=== PATIENT | female | born 1960 | race Caucasian/White ===

== ENCOUNTER 2022-02-14 18:22 | Emergency (ER) | payer SELFPAY ==
[~2022-02-14 18:22] MED LIST: Iopamidol-370 76% 500 ML 1 ML ONE
[2022-02-14 19:23] LABS: #Eosinphils 0.4 thou/uL (0.0-0.7); #Lymphocytes 2.8 thou/uL (1.20-3.40); #Monocytes 0.8 thou/uL (0.11-0.59); %Basophils 0.5 % (0.0-1.0); %Lymphocytes 27.7 % (21.0-51.0); %Monocytes 7.5 % (0.0-10.0); %Neutrophils 60.3 % (42.0-75.0); Hemoglobin 13.5 g/dL (12.0-16.0); Mean Corpuscular Volume 93.9 fL (78.0-98.0); Mean Platelet Volume 7.7 fL (7.4-10.4); Platelet Count 323 thou/uL (130-400); RBC Distribution Width 13.3 % (11.5-14.5); Red Blood Cell (RBC) Count 4.36 mill/uL (4.20-5.40); White Blood Cell (WBC) Count 9.9 thou/uL (4.8-10.8)
[2022-02-14 19:45] LABS: ALT (SGPT) 10 U/L (8-55); AST (SGOT) 20 U/L (5-34); Albumin 4.6 g/dL (3.4-4.8); Alkaline Phosphatase 108 U/L (40-110); Anion Gap 15 mmol/L (10-20); BUN (Urea Nitrogen) 20 mg/dL (9.8-20.1); Bilirubin, Total 0.2 mg/dL (0.2-1.2); Calc. Creatinine Clearance 0 mL/min (70-130); Calcium 9.4 mg/dL (7.8-10.44); Carbon Dioxide 27 mmol/L (23-31); Chloride 102 mmol/L (98-107); Glucose 108 mg/dL (80-115); Potassium 3.9 mmol/L (3.5-5.1); Protein, Total 7.6 g/dL (5.8-8.1); Sodium 140 mmol/L (136-145)
[2022-02-14] MEDS ORDERED: Ketorolac Tromethamine 30 MG/ML VIAL ONE (21:41)
== END 2022-02-14 21:48 | disposition home or self-care (01) ==
LOC: ERS 18:22
DX: R06.02 Shortness of breath (principal); I49.8 Other specified cardiac arrhythmias; E11.9 Type 2 diabetes mellitus without complications; I50.9 Heart failure, unspecified; J44.9 Chronic obstructive pulmonary disease, unspecified; I48.91 Unspecified atrial fibrillation; E03.9 Hypothyroidism, unspecified; H26.9 Unspecified cataract; Z87.891 Personal history of nicotine dependence
CPT/HCPCS: 71045; 71275; 80053; 83880; 84484; 85025; 93005; 94640; 96374; J1885; Q9967

== ENCOUNTER 2022-03-15 13:36 | Observation (INO) | payer MEDICAID, SELFPAY ==
[2022-03-15 14:16] LABS: #Basophils 0.1 thou/uL (0.0-0.2); #Eosinphils 0.4 thou/uL (0.0-0.7); #Lymphocytes 3.5 thou/uL (1.20-3.40); #Monocytes 0.8 thou/uL (0.11-0.59); #Neutrophils 4.3 thou/uL (1.40-6.50); %Basophils 1.2 % (0.0-1.0); %Eosinophils 4.8 % (0.0-10.0); %Lymphocytes 38.4 % (21.0-51.0); %Monocytes 8.3 % (0.0-10.0); %Neutrophils 47.3 % (42.0-75.0); Hemoglobin 14.2 g/dL (12.0-16.0); Mean Corpuscular HGB CONC 32.4 g/dL (32.0-36.0); Mean Corpuscular Hemoglobin 30.6 pg (27.0-31.0); Mean Corpuscular Volume 94.3 fL (78.0-98.0); Mean Platelet Volume 7.4 fL (7.4-10.4); Platelet Count 296 thou/uL (130-400); RBC Distribution Width 13.3 % (11.5-14.5); Red Blood Cell (RBC) Count 4.65 mill/uL (4.20-5.40); White Blood Cell (WBC) Count 9.1 thou/uL (4.8-10.8)
[2022-03-15] MEDS ORDERED: Aspirin Chewable 81 MG TAB ONE (14:32)
[2022-03-15] MEDS ORDERED: Magnesium 2 GM/50 ML BAG (IN WATER) ONE (14:32)
[2022-03-15] MEDS ORDERED: methylPREDNISolone Sod Succ/PF 125 MG/2 ML VIAL ONE ×2 (14:32→14:33)
[2022-03-15 14:37] LABS: ALT (SGPT) 13 U/L (8-55); AST (SGOT) 21 U/L (5-34); Albumin 4.2 g/dL (3.4-4.8); Alkaline Phosphatase 90 U/L (40-110); Anion Gap 15 mmol/L (10-20); BUN (Urea Nitrogen) 22 mg/dL (9.8-20.1); Bilirubin, Total 0.3 mg/dL (0.2-1.2); Calc. Creatinine Clearance 0 mL/min (70-130); Carbon Dioxide 28 mmol/L (23-31); Chloride 103 mmol/L (98-107); Globulin 3.4 g/dL (2.4-3.5); Glucose 149 mg/dL (80-115); Potassium 3.9 mmol/L (3.5-5.1); Protein, Total 7.6 g/dL (5.8-8.1); Sodium 142 mmol/L (136-145)
[2022-03-15] MEDS ORDERED: Sodium Chloride 0.9% 100 ML ONE (16:51)
[2022-03-15] MEDS ORDERED: cefTRIAXone\\ROCEPHIN 2 GM VIAL ONE (16:52)
[2022-03-15] MEDS ORDERED: Acetaminophen 325 MG TAB PO PRN (17:29)
[2022-03-15] MEDS ORDERED: Senokot S 8.6-50 MG TAB PO PRN (17:29)
[2022-03-15] MEDS ORDERED: Dextrose 5% in Water 1,000 ML IV PRN (17:35)
[2022-03-15] MEDS ORDERED: Dextrose 50% Abboject 50 ML SYRINGE SLOW IVP PRN (17:35)
[2022-03-15] MEDS ORDERED: HumaLOG 300 UNITS/3 ML VIAL SC PRN (17:35)
[2022-03-15] MEDS ORDERED: methylPREDNISolone Sod Succ 40 MG VIAL IVP SCH (18:00)
[2022-03-15 18:29] LABS: Troponin I Less than 0.010 ng/mL (< 0.028)
[2022-03-15 20:59] LABS: Troponin I Less than 0.010 ng/mL (< 0.028)
[2022-03-15] MEDS: guaiFENesin ER 600 MG TAB PO SCH (21:02)
[2022-03-15] MEDS: Famotidine 20 MG TAB PO SCH (21:02)
[2022-03-15] MEDS: methylPREDNISolone Sod Succ 40 MG VIAL IVP SCH (21:04)
[2022-03-15 21:15] VITALS: BMI 36.1
[2022-03-15 21:21] LABS: SARS-CoV-2 NAA Rapid Test Not Detected (NotDetected)
[2022-03-15] MEDS: Enoxaparin Sodium 100 MG/ML SYRINGE SC SCH (21:37)
[2022-03-15] MEDS: Mometasone 200 MCG/Formoterol 5 MCG 120 PUFF INHALER INH SCH (22:26)
[2022-03-16] MEDS: methylPREDNISolone Sod Succ 40 MG VIAL IVP SCH ×2 (04:26→07:45)
[2022-03-16 06:04] LABS: Anion Gap 17 mmol/L (10-20); BUN (Urea Nitrogen) 18 mg/dL (9.8-20.1); Calc. Creatinine Clearance 94 mL/min (70-130); Carbon Dioxide 19 mmol/L (23-31); Chloride 107 mmol/L (98-107); Glucose 134 mg/dL (80-115); Magnesium 2.4 mg/dL (1.6-2.6); Potassium 4.6 mmol/L (3.5-5.1); Sodium 138 mmol/L (136-145)
[2022-03-16 06:34] LABS: Band 2 % (5-11); Hemoglobin 14.6 g/dL (12.0-16.0); Lymphocytes 12 % (21-51); MDiff Complete? YES; Mean Corpuscular HGB CONC 32.2 g/dL (32.0-36.0); Mean Corpuscular Hemoglobin 30.2 pg (27.0-31.0); Mean Corpuscular Volume 93.7 fL (78.0-98.0); Mean Platelet Volume 8.2 fL (7.4-10.4); Neutrophil 86 % (42-75); Platelet Count 312 thou/uL (130-400); Platelet Morphology Comment Appears Adequate; RBC Distribution Width 13.3 % (11.5-14.5); RBC Morphology Normal; Red Blood Cell (RBC) Count 4.85 mill/uL (4.20-5.40); White Blood Cell (WBC) Count 18.9 thou/uL (4.8-10.8)
[2022-03-16] MEDS ORDERED: Furosemide 40 MG TAB PO SCH (07:30)
[2022-03-16] MEDS: Enoxaparin Sodium 100 MG/ML SYRINGE SC SCH (07:45)
[2022-03-16] MEDS: Famotidine 20 MG TAB PO SCH (07:46)
[2022-03-16] MEDS: guaiFENesin ER 600 MG TAB PO SCH (07:46)
[2022-03-16] MEDS: Mometasone 200 MCG/Formoterol 5 MCG 120 PUFF INHALER INH SCH (08:22)
[2022-03-16 12:01] VITALS: BP 123/58; TEMP 98.1
== END 2022-03-16 13:57 | disposition home or self-care (01) ==
LOC: ERS 13:36 → 2SW 17:14
PROVIDERS: ADMIT Internal Medicine; ATTEND Internal Medicine
DX: J44.1 Chronic obstructive pulmonary disease with (acute) exacerbation (principal); I50.9 Heart failure, unspecified; I48.0 Paroxysmal atrial fibrillation; Z20.822 Contact with and (suspected) exposure to COVID-19; Z79.82 Long term (current) use of aspirin; Z79.84 Long term (current) use of oral hypoglycemic drugs; Z79.890 Hormone replacement therapy; Z79.899 Other long term (current) drug therapy; Z88.2 Allergy status to sulfonamides; Z87.891 Personal history of nicotine dependence; Z86.718 Personal history of other venous thrombosis and embolism
CPT/HCPCS: 36415; 36416; 71045; 71275; 80048; 80053; 83735; 83880; 84443; 84484; 85025; 85379; 87040; 93005; 94640; 94760; 96365; 96367; 96372; 96375; 96376; G0378; J0696; J1650; J2920; J2930; J3475; J3490; J7620; Q9967; U0002

== ENCOUNTER 2022-04-09 10:13 | Emergency (ER) | payer MEDICARE, MEDICAID ==
[2022-04-09 10:49] LABS: #Basophils 0.1 thou/uL (0.0-0.2); #Eosinphils 0.3 thou/uL (0.0-0.7); #Lymphocytes 3.3 thou/uL (1.20-3.40); #Monocytes 0.7 thou/uL (0.11-0.59); #Neutrophils 7.3 thou/uL (1.40-6.50); %Basophils 0.6 % (0.0-1.0); %Eosinophils 2.5 % (0.0-10.0); %Lymphocytes 28.2 % (21.0-51.0); %Monocytes 5.8 % (0.0-10.0); %Neutrophils 62.9 % (42.0-75.0); Hemoglobin 13.4 g/dL (12.0-16.0); Mean Corpuscular HGB CONC 32.3 g/dL (32.0-36.0); Mean Corpuscular Hemoglobin 30.3 pg (27.0-31.0); Mean Platelet Volume 8.4 fL (7.4-10.4); Platelet Count 273 thou/uL (130-400); RBC Distribution Width 14.2 % (11.5-14.5); Red Blood Cell (RBC) Count 4.42 mill/uL (4.20-5.40); White Blood Cell (WBC) Count 11.6 thou/uL (4.8-10.8)
[2022-04-09 11:03] LABS: ALT (SGPT) 12 U/L (8-55); AST (SGOT) 19 U/L (5-34); Albumin 4.3 g/dL (3.4-4.8); Alkaline Phosphatase 93 U/L (40-110); Anion Gap 17 mmol/L (10-20); BUN (Urea Nitrogen) 19 mg/dL (9.8-20.1); Bilirubin, Total Less than 0.2 mg/dL (0.2-1.2); Calc. Creatinine Clearance 0 mL/min (70-130); Calcium 9.8 mg/dL (7.8-10.44); Carbon Dioxide 24 mmol/L (23-31); Chloride 104 mmol/L (98-107); Estimated GFR 59; Globulin 3.3 g/dL (2.4-3.5); Glucose 134 mg/dL (80-115); Potassium 3.8 mmol/L (3.5-5.1); Protein, Total 7.6 g/dL (5.8-8.1); Sodium 141 mmol/L (136-145)
[2022-04-09] MEDS ORDERED: Albuterol Sulfate 2.5 mg/3 ml Neb ONE (12:24)
[2022-04-09] MEDS ORDERED: Albuterol Sulfate 2.5 mg/0.5 ml Neb ONE (12:24)
[2022-04-09] MEDS ORDERED: methylPREDNISolone Sod Succ/PF 125 MG/2 ML VIAL ONE (12:25)
[2022-04-09] MEDS ORDERED: Magnesium 2 GM/50 ML BAG (IN WATER) ONE (12:25)
[2022-04-09] MEDS ORDERED: predniSONE 20 MG TAB ONE (12:34)
== END 2022-04-09 14:00 | disposition home or self-care (01) ==
LOC: ERS 10:13
DX: J44.1 Chronic obstructive pulmonary disease with (acute) exacerbation (principal); E11.9 Type 2 diabetes mellitus without complications; E03.9 Hypothyroidism, unspecified; Z79.899 Other long term (current) drug therapy
CPT/HCPCS: 36415; 71045; 80053; 83605; 83735; 83880; 84484; 85025; 93005; 94640; 94760; J2930; J3475; J7512; J7611; J7620

== ENCOUNTER 2022-04-14 11:34 | Inpatient (IN) | payer MEDICARE, MEDICAID ==
[2022-04-14 12:17] LABS: #Basophils 0.1 thou/uL (0.0-0.2); #Eosinphils 0.1 thou/uL (0.0-0.7); #Lymphocytes 2.5 thou/uL (1.20-3.40); #Monocytes 0.5 thou/uL (0.11-0.59); #Neutrophils 9.8 thou/uL (1.40-6.50); %Basophils 0.5 % (0.0-1.0); %Eosinophils 0.5 % (0.0-10.0); %Lymphocytes 19.2 % (21.0-51.0); %Monocytes 3.7 % (0.0-10.0); %Neutrophils 76.2 % (42.0-75.0); Hemoglobin 12.5 g/dL (12.0-16.0); Mean Corpuscular HGB CONC 31.6 g/dL (32.0-36.0); Mean Corpuscular Hemoglobin 29.5 pg (27.0-31.0); Mean Corpuscular Volume 93.4 fL (78.0-98.0); Platelet Count 271 thou/uL (130-400); RBC Distribution Width 14.2 % (11.5-14.5); Red Blood Cell (RBC) Count 4.22 mill/uL (4.20-5.40); White Blood Cell (WBC) Count 12.9 thou/uL (4.8-10.8)
[2022-04-14] MEDS ORDERED: Albuterol Sulfate 2.5 mg/3 ml Neb ONE ×3 (12:32→14:52)
[2022-04-14] MEDS ORDERED: Ipratropium Bromide 2.5 ml Neb ONE ×3 (12:32→14:52)
[2022-04-14 12:34] LABS: ALT (SGPT) 13 U/L (8-55); AST (SGOT) 15 U/L (5-34); Albumin 4.3 g/dL (3.4-4.8); Alkaline Phosphatase 87 U/L (40-110); Anion Gap 18 mmol/L (10-20); BUN (Urea Nitrogen) 26 mg/dL (9.8-20.1); Bilirubin, Total 0.2 mg/dL (0.2-1.2); Calc. Creatinine Clearance 0 mL/min (70-130); Calcium 9.7 mg/dL (7.8-10.44); Carbon Dioxide 24 mmol/L (23-31); Chloride 106 mmol/L (98-107); Estimated GFR 64; Globulin 2.9 g/dL (2.4-3.5); Glucose 167 mg/dL (80-115); Potassium 4.2 mmol/L (3.5-5.1); Protein, Total 7.2 g/dL (5.8-8.1); Sodium 144 mmol/L (136-145)
[2022-04-14] MEDS ORDERED: Aspirin Chewable 81 MG TAB ONE (15:44)
[2022-04-14] MEDS ORDERED: Azithromycin 500 MG VIAL ONE (15:44)
[2022-04-14 16:36] LABS: SARS-CoV-2 NAA Rapid Test Not Detected (NotDetected)
[2022-04-14] MEDS ORDERED: Ondansetron ODT 4 MG TAB PO PRN (16:53)
[2022-04-14] MEDS ORDERED: Ondansetron PF 4 MG/2 ML Vial IVP PRN (16:53)
[2022-04-14] MEDS ORDERED: Acetaminophen 650 MG Suppository PR PRN (16:58)
[2022-04-14] MEDS ORDERED: Acetaminophen 325 MG TAB PO SCH (17:00)
[2022-04-14] MEDS ORDERED: Ibuprofen 800 MG TAB PO SCH (17:00)
[2022-04-14] MEDS ORDERED: Dextrose 50% Abboject 50 ML SYRINGE SLOW IVP PRN (17:01)
[2022-04-14] MEDS ORDERED: Dextrose 5% in Water 1,000 ML IV PRN (17:01)
[2022-04-14] MEDS ORDERED: HumaLOG 300 UNITS/3 ML VIAL SC PRN ×2 (17:01)
[2022-04-14] MEDS ORDERED: Albuterol Sulfate 2.5 mg/0.5 ml Neb NEB PRN (17:33)
[2022-04-14 17:39] LABS: Hemoglobin A1c 6.1 % (4.0-6.0)
[2022-04-14 17:54] VITALS: BMI 37.5
[2022-04-14 19:30] LABS: Troponin I Less than 0.010 ng/mL (< 0.028)
[2022-04-14] MEDS: Azithromycin 500 MG in Sodium Chloride 0.9% 250 ML 250 ML IVPB SCH (19:50)
[2022-04-14] MEDS: Cyclobenzaprine 10 MG TAB PO PRN (21:10)
[2022-04-15 04:51] LABS: #Eosinphils 0.1 thou/uL (0.0-0.7); #Lymphocytes 3.2 thou/uL (1.20-3.40); #Neutrophils 11.8 thou/uL (1.40-6.50); %Basophils 0.1 % (0.0-1.0); %Eosinophils 0.4 % (0.0-10.0); %Lymphocytes 19.8 % (21.0-51.0); %Monocytes 6.4 % (0.0-10.0); %Neutrophils 73.3 % (42.0-75.0); Hemoglobin 12.8 g/dL (12.0-16.0); Mean Corpuscular HGB CONC 31.7 g/dL (32.0-36.0); Mean Corpuscular Hemoglobin 29.8 pg (27.0-31.0); Mean Corpuscular Volume 93.9 fL (78.0-98.0); Platelet Count 276 thou/uL (130-400); RBC Distribution Width 14.4 % (11.5-14.5); Red Blood Cell (RBC) Count 4.28 mill/uL (4.20-5.40); White Blood Cell (WBC) Count 16.2 thou/uL (4.8-10.8)
[2022-04-15 05:13] LABS: ALT (SGPT) 11 U/L (8-55); AST (SGOT) 11 U/L (5-34); Albumin 4.1 g/dL (3.4-4.8); Alkaline Phosphatase 76 U/L (40-110); Anion Gap 16 mmol/L (10-20); BUN (Urea Nitrogen) 27 mg/dL (9.8-20.1); Bilirubin, Total 0.2 mg/dL (0.2-1.2); Calc. Creatinine Clearance 96 mL/min (70-130); Carbon Dioxide 26 mmol/L (23-31); Cardiac Risk 2.9 (Less than 4.5); Chloride 106 mmol/L (98-107); Cholesterol 216 mg/dl (< 200 Desired); Estimated GFR 78; Globulin 2.8 g/dL (2.4-3.5); Glucose 101 mg/dL (80-115); HDL Cholesterol 74 mg/dL (>60 Neg Risk); LDL Cholesterol, Calculated 121 mg/dL; Protein, Total 6.9 g/dL (5.8-8.1); Sodium 144 mmol/L (136-145); Triglycerides 105 mg/dL (Less than 150)
[2022-04-15] MEDS: Levothyroxine 150 MCG TAB PO SCH (06:46)
[2022-04-15] MEDS: Furosemide 40 MG TAB PO SCH (08:53)
[2022-04-15] MEDS ORDERED: Enoxaparin Sodium 30 MG/0.3 ML SYRINGE SC SCH (09:00)
[2022-04-15] MEDS: Cyclobenzaprine 10 MG TAB PO PRN ×2 (13:13→20:35)
[2022-04-15] MEDS ORDERED: Naproxen 500 MG TAB PO SCH (17:45)
[2022-04-15] MEDS: Azithromycin 500 MG in Sodium Chloride 0.9% 250 ML 250 ML IVPB SCH (18:28)
[2022-04-16 05:01] LABS: #Basophils 0.1 thou/uL (0.0-0.2); #Eosinphils 0.3 thou/uL (0.0-0.7); #Lymphocytes 4.6 thou/uL (1.20-3.40); #Monocytes 0.9 thou/uL (0.11-0.59); #Neutrophils 6.9 thou/uL (1.40-6.50); %Basophils 0.5 % (0.0-1.0); %Eosinophils 2.3 % (0.0-10.0); %Monocytes 6.8 % (0.0-10.0); %Neutrophils 54.4 % (42.0-75.0); Hemoglobin 12.8 g/dL (12.0-16.0); Mean Corpuscular HGB CONC 32.1 g/dL (32.0-36.0); Mean Corpuscular Hemoglobin 30.3 pg (27.0-31.0); Mean Corpuscular Volume 94.4 fL (78.0-98.0); Platelet Count 259 thou/uL (130-400); RBC Distribution Width 14.5 % (11.5-14.5); Red Blood Cell (RBC) Count 4.22 mill/uL (4.20-5.40); White Blood Cell (WBC) Count 12.7 thou/uL (4.8-10.8)
[2022-04-16 05:46] LABS: Anion Gap 17 mmol/L (10-20); BUN (Urea Nitrogen) 33 mg/dL (9.8-20.1); Calc. Creatinine Clearance 85 mL/min (70-130); Calcium 8.4 mg/dL (7.8-10.44); Carbon Dioxide 24 mmol/L (23-31); Chloride 105 mmol/L (98-107); Estimated GFR 67; Glucose 96 mg/dL (80-115); Potassium 3.9 mmol/L (3.5-5.1); Sodium 142 mmol/L (136-145)
[2022-04-16] MEDS: Levothyroxine 150 MCG TAB PO SCH (06:23)
[2022-04-16] MEDS: Naproxen 500 MG TAB PO SCH ×2 (09:35→22:06)
[2022-04-16] MEDS: Furosemide 40 MG TAB PO SCH (09:36)
[2022-04-16] MEDS: Enoxaparin Sodium 40 MG/0.4 ML SYRINGE SC SCH (09:37)
[2022-04-16] MEDS: HYDROcodone/Acetaminophen 5/325 mg Tablet PO PRN (18:01)
[2022-04-16] MEDS: Azithromycin 500 MG in Sodium Chloride 0.9% 250 ML 250 ML IVPB SCH (18:02)
[2022-04-17 04:41] LABS: #Basophils 0.1 thou/uL (0.0-0.2); #Eosinphils 0.3 thou/uL (0.0-0.7); #Lymphocytes 3.1 thou/uL (1.20-3.40); #Neutrophils 10.3 thou/uL (1.40-6.50); %Basophils 0.6 % (0.0-1.0); %Lymphocytes 21.2 % (21.0-51.0); %Monocytes 6.5 % (0.0-10.0); %Neutrophils 69.7 % (42.0-75.0); Hemoglobin 12.9 g/dL (12.0-16.0); Mean Corpuscular HGB CONC 31.1 g/dL (32.0-36.0); Mean Corpuscular Hemoglobin 29.7 pg (27.0-31.0); Mean Corpuscular Volume 95.4 fL (78.0-98.0); Mean Platelet Volume 7.7 fL (7.4-10.4); Platelet Count 262 thou/uL (130-400); RBC Distribution Width 14.4 % (11.5-14.5); Red Blood Cell (RBC) Count 4.35 mill/uL (4.20-5.40); White Blood Cell (WBC) Count 14.8 thou/uL (4.8-10.8)
[2022-04-17 05:02] LABS: Anion Gap 15 mmol/L (10-20); BUN (Urea Nitrogen) 32 mg/dL (9.8-20.1); Calc. Creatinine Clearance 92 mL/min (70-130); Calcium 8.6 mg/dL (7.8-10.44); Carbon Dioxide 25 mmol/L (23-31); Chloride 105 mmol/L (98-107); Estimated GFR 73; Glucose 112 mg/dL (80-115); Sodium 141 mmol/L (136-145)
[2022-04-17] MEDS: Levothyroxine 150 MCG TAB PO SCH (05:44)
[2022-04-17] MEDS: Furosemide 40 MG TAB PO SCH (08:59)
[2022-04-17] MEDS: Naproxen 500 MG TAB PO SCH ×2 (08:59→20:31)
[2022-04-17] MEDS: Enoxaparin Sodium 40 MG/0.4 ML SYRINGE SC SCH (09:00)
[2022-04-17] MEDS ORDERED: Lorazepam (BATCHED) 2 MG/ML SYR SLOW IVP SCH (09:30)
[2022-04-17] MEDS ORDERED: Midazolam HCl 2 mg/2 ml Vial SLOW IVP SCH (09:30)
[2022-04-17] MEDS: HYDROcodone/Acetaminophen 5/325 mg Tablet PO PRN (17:58)
[2022-04-17] MEDS ORDERED: Polyethylene Glycol 3350 17 GM Packet PO PRN (21:13)
[2022-04-18 04:58] LABS: #Basophils 0.1 thou/uL (0.0-0.2); #Eosinphils 0.3 thou/uL (0.0-0.7); #Lymphocytes 3.6 thou/uL (1.20-3.40); #Monocytes 0.8 thou/uL (0.11-0.59); #Neutrophils 6.9 thou/uL (1.40-6.50); %Basophils 0.7 % (0.0-1.0); %Eosinophils 2.7 % (0.0-10.0); %Lymphocytes 31.1 % (21.0-51.0); %Monocytes 6.9 % (0.0-10.0); %Neutrophils 58.7 % (42.0-75.0); Mean Corpuscular HGB CONC 30.6 g/dL (32.0-36.0); Mean Corpuscular Volume 97.8 fL (78.0-98.0); Mean Platelet Volume 8.4 fL (7.4-10.4); Platelet Count 248 thou/uL (130-400); RBC Distribution Width 14.6 % (11.5-14.5); Red Blood Cell (RBC) Count 4.34 mill/uL (4.20-5.40); White Blood Cell (WBC) Count 11.7 thou/uL (4.8-10.8)
[2022-04-18 05:08] LABS: Anion Gap 19 mmol/L (10-20); BUN (Urea Nitrogen) 30 mg/dL (9.8-20.1); Calc. Creatinine Clearance 86 mL/min (70-130); Calcium 8.3 mg/dL (7.8-10.44); Carbon Dioxide 20 mmol/L (23-31); Chloride 105 mmol/L (98-107); Estimated GFR 68; Glucose 101 mg/dL (80-115); Potassium 3.9 mmol/L (3.5-5.1); Sodium 140 mmol/L (136-145)
[2022-04-18] MEDS: Levothyroxine 150 MCG TAB PO SCH (06:24)
[2022-04-18] MEDS ORDERED: Polyethylene Glycol 3350 17 GM Packet PO SCH (09:00)
[2022-04-18] MEDS: Naproxen 500 MG TAB PO SCH (09:03)
[2022-04-18] MEDS: Enoxaparin Sodium 40 MG/0.4 ML SYRINGE SC SCH (09:04)
[2022-04-18] MEDS: Furosemide 40 MG TAB PO SCH (09:04)
[2022-04-18 11:06] VITALS: BP 122/58
[2022-04-18] MEDS ORDERED: Magnesium Citrate 300 ML BOT PO SCH (13:00)
[2022-04-18] MEDS ORDERED: Iopamidol-370 76% 500 ML 1 ML ONE (14:09)
[2022-04-18 15:21] VITALS: TEMP 98.2
== END 2022-04-18 16:15 | disposition home or self-care (01) | DRG 313 ==
LOC: ERS 11:34 → 2SW 16:02 → OBSVTOIN 04-15 17:39
PROVIDERS: ADMIT Hospitalist; ATTEND Hospitalist
DX: R07.89 Other chest pain (principal); I50.32 Chronic diastolic (congestive) heart failure; M48.54XA Collapsed vertebra, not elsewhere classified, thoracic region, initial encounter for fracture; Z20.822 Contact with and (suspected) exposure to COVID-19; I48.91 Unspecified atrial fibrillation; I11.0 Hypertensive heart disease with heart failure; E11.9 Type 2 diabetes mellitus without complications; E03.9 Hypothyroidism, unspecified; H26.9 Unspecified cataract; K21.9 Gastro-esophageal reflux disease without esophagitis; J44.9 Chronic obstructive pulmonary disease, unspecified; Z86.718 Personal history of other venous thrombosis and embolism; Z83.6 Family history of other diseases of the respiratory system; Z82.49 Family history of ischemic heart disease and other diseases of the circulatory system; Z88.2 Allergy status to sulfonamides; Z91.013 Allergy to seafood
CPT/HCPCS: 36415; 36416; 71045; 71275; 72146; 74177; 76705; 80048; 80053; 80061; 83036; 83690; 84484; 85025; 93005; 93306; 94644; 94760; 96366; G0378; J0456; J1650; J1815; J2250; J7050; J7611; Q9967

== ENCOUNTER 2022-09-08 21:06 | Emergency (ER) | payer MEDICARE, MEDICAID ==
[2022-09-08] MEDS ORDERED: diphenhydrAMINE 50 MG/ML VIAL ONE (21:36)
[2022-09-08] MEDS ORDERED: Famotidine/PF 20 mg/2ml Vial ONE (21:36)
[2022-09-08] MEDS ORDERED: predniSONE 20 MG TAB ONE (21:36)
[2022-09-08 22:01] LABS: #Basophils 0.1 thou/uL (0.0-0.2); #Eosinphils 0.4 thou/uL (0.0-0.7); #Lymphocytes 3.4 thou/uL (1.20-3.40); #Monocytes 0.8 thou/uL (0.11-0.59); #Neutrophils 6.3 thou/uL (1.40-6.50); %Basophils 0.6 % (0.0-1.0); %Eosinophils 3.5 % (0.0-10.0); %Lymphocytes 30.8 % (21.0-51.0); %Monocytes 7.5 % (0.0-10.0); %Neutrophils 57.5 % (42.0-75.0); Hemoglobin 13.3 g/dL (12.0-16.0); Mean Corpuscular HGB CONC 32.1 g/dL (32.0-36.0); Mean Corpuscular Hemoglobin 27.9 pg (27.0-31.0); Mean Platelet Volume 8.6 fL (7.4-10.4); Platelet Count 325 10x3/uL (130-400); RBC Distribution Width 15.2 % (11.5-14.5); Red Blood Cell (RBC) Count 4.75 mill/uL (4.20-5.40)
[2022-09-08 22:22] LABS: Anion Gap 13 mmol/L (10-20); BUN (Urea Nitrogen) 19 mg/dL (9.8-20.1); Calc. Creatinine Clearance 0 mL/min (70-130); Carbon Dioxide 24 mmol/L (23-31); Chloride 108 mmol/L (98-107); Potassium 4.3 mmol/L (3.5-5.1); Sodium 141 mmol/L (136-145)
[2022-09-08 22:23] LABS: ALT (SGPT) 18 U/L (8-55); AST (SGOT) 22 U/L (5-34); Albumin 4.5 g/dL (3.4-4.8); Alkaline Phosphatase 97 U/L (40-110); Bilirubin, Total 0.3 mg/dL (0.2-1.2); Calcium 9.9 mg/dL (7.8-10.44); Estimated GFR 59; Glucose 107 mg/dL (80-115); Protein, Total 7.5 g/dL (5.8-8.1)
== END 2022-09-08 22:53 | disposition home or self-care (01) ==
LOC: ERS 21:06
DX: L50.0 Allergic urticaria (principal); J44.9 Chronic obstructive pulmonary disease, unspecified; E03.9 Hypothyroidism, unspecified; E11.9 Type 2 diabetes mellitus without complications; I50.9 Heart failure, unspecified
CPT/HCPCS: 36415; 71045; 80053; 84484; 85025; 93005; 96374; 96375; J1200; J7512; S0028

== ENCOUNTER 2022-09-22 06:22 | Inpatient (IN) | payer MEDICARE, MEDICAID ==
[2022-09-22] MEDS ORDERED: cefTRIAXone\\ROCEPHIN 1 GM VIAL ONE (06:52)
[2022-09-22] MEDS ORDERED: Azithromycin 250 MG TAB ONE (06:52)
[2022-09-22] MEDS ORDERED: predniSONE 20 MG TAB ONE (06:52)
[2022-09-22] MEDS ORDERED: Magnesium 2 GM/50 ML BAG (IN WATER) ONE (06:53)
[2022-09-22 07:28] LABS: #Eosinphils 0.1 thou/uL (0.0-0.7); #Lymphocytes 1.6 thou/uL (1.20-3.40); #Monocytes 0.6 thou/uL (0.11-0.59); #Neutrophils 7.1 thou/uL (1.40-6.50); %Basophils 0.4 % (0.0-1.0); %Eosinophils 1.1 % (0.0-10.0); %Lymphocytes 16.7 % (21.0-51.0); %Monocytes 6.7 % (0.0-10.0); Hemoglobin 13.7 g/dL (12.0-16.0); Mean Corpuscular HGB CONC 32.2 g/dL (32.0-36.0); Mean Corpuscular Hemoglobin 28.5 pg (27.0-31.0); Mean Corpuscular Volume 88.7 fl (78.0-98.0); Mean Platelet Volume 9.3 fL (7.4-10.4); Platelet Count 193 10x3/uL (130-400); RBC Distribution Width 15.8 % (11.5-14.5); Red Blood Cell (RBC) Count 4.81 mill/uL (4.20-5.40); White Blood Cell (WBC) Count 9.4 10x3/uL (4.8-10.8)
[2022-09-22 07:43] LABS: ALT (SGPT) 17 U/L (8-55); AST (SGOT) 21 U/L (5-34); Albumin 4.1 g/dL (3.4-4.8); Alkaline Phosphatase 97 U/L (40-110); Anion Gap 15 mmol/L (10-20); BUN (Urea Nitrogen) 15 mg/dL (9.8-20.1); Bilirubin, Total 0.4 mg/dL (0.2-1.2); Calc. Creatinine Clearance 0 mL/min (70-130); Calcium 8.7 mg/dL (7.8-10.44); Carbon Dioxide 24 mmol/L (23-31); Chloride 105 mmol/L (98-107); Estimated GFR 49; Globulin 3.2 g/dL (2.4-3.5); Glucose 126 mg/dL (80-115); Potassium 3.9 mmol/L (3.5-5.1); Protein, Total 7.3 g/dL (5.8-8.1); Sodium 140 mmol/L (136-145)
[2022-09-22] MEDS ORDERED: Albuterol Sulfate 2.5 mg/3 ml Neb NEB PRN (08:40)
[2022-09-22] MEDS ORDERED: HYDROcodone/Acetaminophen 5/325 mg Tablet PO PRN (08:41)
[2022-09-22] MEDS ORDERED: Ondansetron PF 4 MG/2 ML Vial IVP PRN (08:41)
[2022-09-22] MEDS ORDERED: Acetaminophen 325 MG TAB PO PRN (08:41)
[2022-09-22] MEDS ORDERED: Senokot S 8.6-50 MG TAB PO PRN (08:41)
[2022-09-22] MEDS ORDERED: Guaifenesin DM 100-10/5 ML UDCUP PO PRN (08:41)
[2022-09-22] MEDS ORDERED: Enoxaparin Sodium 40 MG/0.4 ML SYRINGE SC SCH (09:00)
[2022-09-22] MEDS ORDERED: Levothyroxine 150 MCG TAB PO SCH (10:00)
[2022-09-22 10:10] VITALS: BMI 37.8
[2022-09-22] MEDS ORDERED: predniSONE 20 MG TAB PO SCH (11:30)
[2022-09-22] MEDS ORDERED: Albuterol 200 PUFF (6.7GM INHALER) INH PRN (15:36)
[2022-09-22] MEDS ORDERED: Benzonatate 100 MG CAP PO PRN (15:36)
[2022-09-22] MEDS ORDERED: REMDESIVIR 200 MG in Sodium Chloride 0.9% 250 ML 210 ML IV SCH ×2 (15:45→16:00)
[2022-09-22] MEDS ORDERED: Arformoterol 15 MCG/2 ML NEB NEB SCH (18:30)
[2022-09-22] MEDS: Apixaban 5 MG TAB PO SCH (20:07)
[2022-09-23] MEDS: Levothyroxine 150 MCG TAB PO SCH (05:43)
[2022-09-23 06:21] LABS: #Lymphocytes 1.8 thou/uL (1.20-3.40); #Monocytes 0.6 thou/uL (0.11-0.59); #Neutrophils 4.9 thou/uL (1.40-6.50); %Basophils 0.3 % (0.0-1.0); %Eosinophils 0.5 % (0.0-10.0); %Lymphocytes 24.3 % (21.0-51.0); %Neutrophils 66.9 % (42.0-75.0); Hemoglobin 12.2 g/dL (12.0-16.0); Mean Corpuscular HGB CONC 31.2 g/dL (32.0-36.0); Mean Corpuscular Hemoglobin 28.2 pg (27.0-31.0); Mean Corpuscular Volume 90.3 fl (78.0-98.0); Mean Platelet Volume 9.1 fL (7.4-10.4); Platelet Count 178 10x3/uL (130-400); RBC Distribution Width 15.9 % (11.5-14.5); Red Blood Cell (RBC) Count 4.34 mill/uL (4.20-5.40); White Blood Cell (WBC) Count 7.2 10x3/uL (4.8-10.8)
[2022-09-23 06:37] LABS: Lactic Acid 1.1 mmol/L (0.5-2.2)
[2022-09-23 06:42] LABS: Anion Gap 13 mmol/L (10-20); BUN (Urea Nitrogen) 14 mg/dL (9.8-20.1); Calc. Creatinine Clearance 99 mL/min (70-130); Calcium 8.3 mg/dL (7.8-10.44); Carbon Dioxide 22 mmol/L (23-31); Chloride 108 mmol/L (98-107); Estimated GFR 80; Glucose 109 mg/dL (80-115); Potassium 4.6 mmol/L (3.5-5.1); Sodium 138 mmol/L (136-145)
[2022-09-23 06:53] LABS: ALT (SGPT) 15 U/L (8-55); AST (SGOT) 25 U/L (5-34); Albumin 3.5 g/dL (3.4-4.8); Alkaline Phosphatase 81 U/L (40-110); Bilirubin, Direct 0.1 mg/dL (0.1-0.3); Bilirubin, Total 0.2 mg/dL (0.2-1.2); Protein, Total 6.9 g/dL (5.8-8.1)
[2022-09-23] MEDS ORDERED: predniSONE 20 MG TAB PO SCH (08:00)
[2022-09-23] MEDS: Apixaban 5 MG TAB PO SCH ×2 (09:24→20:14)
[2022-09-23] MEDS: Zinc Sulfate 220 MG CAP PO SCH (09:24)
[2022-09-23] MEDS: Furosemide 40 MG TAB PO SCH (09:24)
[2022-09-23] MEDS: Dexamethasone 4 MG TAB PO SCH (09:24)
[2022-09-23] MEDS: Ascorbic Acid 500 mg Chewable Tablet PO SCH (09:25)
[2022-09-23] MEDS ORDERED: [UNRECOGNIZED DRUG - OTHER] FS PRN (15:23)
[2022-09-23] MEDS ORDERED: Cyclobenzaprine 10 MG TAB PO PRN (15:23)
[2022-09-23] MEDS ORDERED: Dextrose 50% Abboject 50 ML SYRINGE SLOW IVP PRN (15:24)
[2022-09-23] MEDS ORDERED: Dextrose 5% in Water 1,000 ML IV PRN (15:24)
[2022-09-23] MEDS ORDERED: REMDESIVIR 100 MG in Sodium Chloride 0.9% 250 ML 230 ML IV SCH (15:45)
[2022-09-23] MEDS ORDERED: metFORMIN 500 MG TAB PO SCH (17:00)
[2022-09-23] MEDS: REMDESIVIR 100 MG in Sodium Chloride 0.9% 250 ML 230 ML IV SCH (20:14)
[2022-09-23] MEDS: Doxycycline 100 MG CAP PO SCH (20:14)
[2022-09-24] MEDS: Levothyroxine 150 MCG TAB PO SCH (06:12)
[2022-09-24 07:55] LABS: ALT (SGPT) 17 U/L (8-55); AST (SGOT) 25 U/L (5-34); Albumin 3.8 g/dL (3.4-4.8); Alkaline Phosphatase 82 U/L (40-110); Bilirubin, Direct 0.1 mg/dL (0.1-0.3); Bilirubin, Total 0.3 mg/dL (0.2-1.2); Protein, Total 7.2 g/dL (5.8-8.1)
[2022-09-24] MEDS: Dexamethasone 4 MG TAB PO SCH (08:21)
[2022-09-24] MEDS: Zinc Sulfate 220 MG CAP PO SCH (08:22)
[2022-09-24] MEDS: Loratadine 10 MG TAB PO SCH (08:22)
[2022-09-24] MEDS: Apixaban 5 MG TAB PO SCH ×2 (08:22→20:51)
[2022-09-24] MEDS: Ascorbic Acid 500 mg Chewable Tablet PO SCH (08:22)
[2022-09-24] MEDS: Doxycycline 100 MG CAP PO SCH ×2 (08:22→20:51)
[2022-09-24] MEDS: Furosemide 40 MG TAB PO SCH (08:22)
[2022-09-24] MEDS: Fluticasone Propionate Nasal Spray 16 gm Bottle NASAL SCH (11:31)
[2022-09-24] MEDS: Albuterol 200 PUFF (6.7GM INHALER) INH SCH ×2 (13:00→20:51)
[2022-09-24] MEDS: HumaLOG 300 UNITS/3 ML VIAL SC PRN (13:01)
[2022-09-24] MEDS: REMDESIVIR 100 MG in Sodium Chloride 0.9% 250 ML 230 ML IV SCH (20:51)
[2022-09-25] MEDS: Albuterol 200 PUFF (6.7GM INHALER) INH SCH ×4 (01:31→18:14)
[2022-09-25] MEDS: Levothyroxine 150 MCG TAB PO SCH (06:09)
[2022-09-25 06:39] LABS: ALT (SGPT) 14 U/L (8-55); AST (SGOT) 16 U/L (5-34); Albumin 3.7 g/dL (3.4-4.8); Alkaline Phosphatase 81 U/L (40-110); Bilirubin, Direct 0.1 mg/dL (0.1-0.3); Bilirubin, Total 0.2 mg/dL (0.2-1.2); Protein, Total 6.9 g/dL (5.8-8.1)
[2022-09-25] MEDS: Furosemide 40 MG TAB PO SCH (09:04)
[2022-09-25] MEDS: Loratadine 10 MG TAB PO SCH (09:04)
[2022-09-25] MEDS: Ascorbic Acid 500 mg Chewable Tablet PO SCH (09:04)
[2022-09-25] MEDS: Doxycycline 100 MG CAP PO SCH ×2 (09:05→20:36)
[2022-09-25] MEDS: Zinc Sulfate 220 MG CAP PO SCH (09:05)
[2022-09-25] MEDS: Fluticasone Propionate Nasal Spray 16 gm Bottle NASAL SCH (09:05)
[2022-09-25] MEDS: Apixaban 5 MG TAB PO SCH ×2 (09:05→20:36)
[2022-09-25] MEDS: Dexamethasone 4 MG TAB PO SCH (09:05)
[2022-09-25] MEDS: HumaLOG 300 UNITS/3 ML VIAL SC PRN (18:19)
[2022-09-25] MEDS: REMDESIVIR 100 MG in Sodium Chloride 0.9% 250 ML 230 ML IV SCH (20:36)
[2022-09-26] MEDS: Albuterol 200 PUFF (6.7GM INHALER) INH SCH ×3 (01:31→12:28)
[2022-09-26] MEDS: Levothyroxine 150 MCG TAB PO SCH (05:47)
[2022-09-26 06:30] LABS: ALT (SGPT) 14 U/L (8-55); AST (SGOT) 15 U/L (5-34); Albumin 3.6 g/dL (3.4-4.8); Alkaline Phosphatase 80 U/L (40-110); Bilirubin, Direct 0.1 mg/dL (0.1-0.3); Bilirubin, Total 0.3 mg/dL (0.2-1.2); Protein, Total 6.8 g/dL (5.8-8.1)
[2022-09-26] MEDS: Ascorbic Acid 500 mg Chewable Tablet PO SCH (08:27)
[2022-09-26] MEDS: Furosemide 40 MG TAB PO SCH (08:27)
[2022-09-26] MEDS: Apixaban 5 MG TAB PO SCH (08:27)
[2022-09-26] MEDS: Zinc Sulfate 220 MG CAP PO SCH (08:27)
[2022-09-26] MEDS: Doxycycline 100 MG CAP PO SCH (08:27)
[2022-09-26] MEDS: Loratadine 10 MG TAB PO SCH (08:27)
[2022-09-26] MEDS: Dexamethasone 4 MG TAB PO SCH (08:27)
[2022-09-26] MEDS: Fluticasone Propionate Nasal Spray 16 gm Bottle NASAL SCH (08:27)
[2022-09-26] MEDS ORDERED: REMDESIVIR 100 MG in Sodium Chloride 0.9% 250 ML 230 ML IV SCH (12:00)
[2022-09-26 14:33] VITALS: BP 118/77; TEMP 97.7
== END 2022-09-26 14:35 | disposition home or self-care (01) | DRG 177 ==
LOC: ERS 06:22 → T4-B 09:38
PROVIDERS: ADMIT Hospitalist; ATTEND Hospitalist
PROC: XW033E5 Introduction of Remdesivir Anti-infective into Peripheral Vein, Percutaneous Approach, New Technology Group 5 (ICD-10-PCS; principal; 2022-09-22)
PROC: 3E0DX3Z Introduction of Anti-inflammatory into Mouth and Pharynx, External Approach (ICD-10-PCS; 2022-09-22)
PROC: 8E0ZXY6 Isolation (ICD-10-PCS; 2022-09-22)
DX: U07.1 COVID-19 (principal); J12.82 Pneumonia due to coronavirus disease 2019; J96.01 Acute respiratory failure with hypoxia; J44.1 Chronic obstructive pulmonary disease with (acute) exacerbation; I48.20 Chronic atrial fibrillation, unspecified; J44.0 Chronic obstructive pulmonary disease with (acute) lower respiratory infection; I50.9 Heart failure, unspecified; E11.9 Type 2 diabetes mellitus without complications; I11.0 Hypertensive heart disease with heart failure; I48.0 Paroxysmal atrial fibrillation; E03.9 Hypothyroidism, unspecified; F41.9 Anxiety disorder, unspecified; Z88.2 Allergy status to sulfonamides; Z91.013 Allergy to seafood; Z88.8 Allergy status to other drugs, medicaments and biological substances; Z79.51 Long term (current) use of inhaled steroids; Z79.84 Long term (current) use of oral hypoglycemic drugs; Z79.899 Other long term (current) drug therapy
CPT/HCPCS: 36415; 36416; 71045; 80048; 80053; 80076; 83605; 83880; 84145; 84484; 85025; 85379; 86140; 87040; 87070; 87205; 87804; 93005; 94640; 96374; J0248; J0696; J1650; J1815; J3475; J7050; J7512; J7620; J8540; U0003; U0005

== ENCOUNTER 2022-11-03 09:22 | Outpatient (CLI) | payer MEDICARE, MEDICAID | END 2022-11-03 09:23 | disposition home or self-care (01) | LOC: RAD 09:22 | PROVIDERS: ATTEND Internal Medicine Critical Care Medicine | DX: R06.00 Dyspnea, unspecified (principal) | CPT/HCPCS: 71046 ==

== ENCOUNTER 2023-02-11 08:09 | Emergency (ER) | payer MEDICARE, MEDICAID ==
[2023-02-11] MEDS ORDERED: predniSONE 20 MG TAB ONE (08:37)
[2023-02-11] MEDS ORDERED: Ipratropium/Albuterol 3 ML NEB ONE (08:41)
[2023-02-11 08:59] LABS: #Monocytes 0.7 thou/uL (0.11-0.59); #Neutrophils 10.4 thou/uL (1.40-6.50); %Basophils 0.3 % (0.0-1.0); %Eosinophils 0.1 % (0.0-10.0); %Lymphocytes 5.1 % (21.0-51.0); %Monocytes 5.9 % (0.0-10.0); %Neutrophils 87.8 % (42.0-75.0); Hemoglobin 12.7 g/dL (12.0-16.0); Mean Corpuscular HGB CONC 30.5 g/dL (32.0-36.0); Mean Corpuscular Hemoglobin 26.8 pg (27.0-31.0); Mean Platelet Volume 10.7 fL (7.4-10.4); Platelet Count 259 10x3/uL (130-400); RBC Distribution Width 17.2 % (11.5-14.5); Red Blood Cell (RBC) Count 4.74 mill/uL (4.20-5.40); White Blood Cell (WBC) Count 11.8 10x3/uL (4.8-10.8)
[2023-02-11 09:00] LABS: Base Excess 3.3 mEq/L (-2.0 to +3.0); Calcium, Ionized (venous) 1.02 mmol/L (1.16-1.32); Chloride (VBG) 103 mmol/L (98-106); Hematocrit-VBG 41 % (36.0-47.0); Hemoglobin (Hb) 14.1 g/dL (11.7-16.0); Potassium (VBG) 3.83 mmol/L (3.70-5.30); Sodium 138.4 mmol/L (133-146)
[2023-02-11 09:22] LABS: ALT (SGPT) 14 U/L (8-55); AST (SGOT) 16 U/L (5-34); Albumin 4.1 g/dL (3.4-4.8); Alkaline Phosphatase 85 U/L (40-110); Anion Gap 16 mmol/L (10-20); BUN (Urea Nitrogen) 15 mg/dL (9.8-20.1); Bilirubin, Total 0.2 mg/dL (0.2-1.2); Calc. Creatinine Clearance 0 mL/min (70-130); Calcium 8.8 mg/dL (7.8-10.44); Carbon Dioxide 23 mmol/L (23-31); Chloride 104 mmol/L (98-107); Estimated GFR 61; Glucose 134 mg/dL (80-115); Potassium 3.9 mmol/L (3.5-5.1); Protein, Total 7.1 g/dL (5.8-8.1); Sodium 139 mmol/L (136-145)
== END 2023-02-11 10:26 | disposition home or self-care (01) ==
LOC: ERS 08:09
DX: R06.02 Shortness of breath (principal); R09.81 Nasal congestion; J34.89 Other specified disorders of nose and nasal sinuses; J44.9 Chronic obstructive pulmonary disease, unspecified; I48.91 Unspecified atrial fibrillation; E11.9 Type 2 diabetes mellitus without complications; E03.9 Hypothyroidism, unspecified; Z79.01 Long term (current) use of anticoagulants; Z87.891 Personal history of nicotine dependence
CPT/HCPCS: 36415; 71045; 80053; 82805; 83880; 84484; 85025; 93005; 94640; J7512; J7620

== ENCOUNTER 2023-03-25 09:18 | Outpatient (CLI) | payer MEDICARE, MEDICAID | END 2023-03-25 09:19 | disposition home or self-care (01) | LOC: RAD 09:18 | PROVIDERS: ATTEND Internal Medicine Critical Care Medicine | DX: R06.00 Dyspnea, unspecified (principal) | CPT/HCPCS: 71046 ==

== ENCOUNTER 2023-05-25 15:10 | Outpatient (CLI) | payer MEDICARE, MEDICAID | END 2023-05-25 15:11 | disposition home or self-care (01) | LOC: RAD 15:10 | PROVIDERS: ATTEND Family Medicine | DX: I26.09 Other pulmonary embolism with acute cor pulmonale (principal); M48.54XD Collapsed vertebra, not elsewhere classified, thoracic region, subsequent encounter for fracture with routine healing | CPT/HCPCS: 36415; 71046; 80053; 83036; 85025 ==